=== PATIENT | male | born 2005 | race Caucasian/White ===

== ENCOUNTER 2024-04-19 21:18 | Emergency (ER) | payer OTHER, SELFPAY ==
[2024-04-19 21:19] VITALS: BP 147/84; PULSE 89; RESP 16; TEMP 36.8; O2SAT 99; BMI 34.0
--- NOTE | 2024-04-19 21:22 | RAD_ITS ---
STUDY: X-RAY - RIGHT HAND REASON FOR EXAM: Male, 18 years old. CRUSH INJURY TECHNIQUE: 3 view(s) of the hand. COMPARISON: None. FINDINGS: Normal radiocarpal articulation. Normal distal radioulnar joint. Normal visualized carpal bones. Normal carpal articulations Normal carpometacarpal articulation of the thumb. Normal second through fifth carpometacarpal joints. Normal metacarpi. Normal metacarpophalangeal joint of the thumb. Normal interphalangeal joint of the thumb. Normal proximal and distal phalanges of the thumb. Normal metacarpophalangeal joints of the second through fifth fingers. Normal proximal and distal interphalangeal joints of the second through fifth fingers. Probable 1 cm cyst of the second middle phalanx. Otherwise normal phalanges of the second through fifth fingers. There is dorsal soft tissue swelling. RAD/Hand Min 3 Views IMPRESSION: No acute fracture or dislocation. There is dorsal soft tissue swelling. There is a 1 cm probable cyst of the second middle phalanx. Electronically Signed: Elijah Alex MD at 21:58 EST ,
--- NOTE | 2024-04-19 21:26 | ED.RN ---
[facility]
--- NOTE | 2024-04-19 22:22 | EDS_ITS ---
HPI History of Present Illness Chief Complaint: Upper Extremity Injury Informant: patient Narrative Narrative: [id number] male presents work-related injury 1 hour prior to arrival. Move himself up on a scissor lift when they got pinched. He stopped it right away. Swelling to the right hand. No medications taken. No other injuries. No paresthesias. Prior similar symptoms: No PFSH PFSH Medical History Presence of implantable pulmonary artery pressure and heart rate monitoring system Home Medications ?Medication ?Instructions ?Recorded ?Last Taken ?Type NK 04/19/24 Unknown History Allergy/AdvReac Type Severity Reaction Status Date / Time No Known Allergies Allergy Verified 04/19/24 21:19 Family History no significant family his Social History Smoking Status: Never smoker ROS ROS ED Constitutional Constitutional ED: Denies chills, fever(s) or sweats Cardiovascular Cardiovascular: Denies chest pain Respiratory/Chest Respiratory/Chest: Denies cough Gastrointestinal Gastrointestinal: Denies abdominal pain, diarrhea, nausea or vomiting Musculoskeletal Musculoskeletal: Reports extremity pain Integumentary Denies wounds Neurologic Neurologic: Denies paresthesias or weakness EXAM Physical Exam Const Vital Signs: 04/19/24 21:19 Temperature 98.2 F Temperature Source Oral Pulse Rate 89 Respiratory Rate 16 Blood Pressure 147/84 H Blood Pressure Mean 105 Pulse Ox 99 Oxygen Delivery Method Room Air Positive well nourished and well developed General Appearance ED: well developed and NAD HEENT Reports moist mucous membranes normocephalic and atraumatic Eyes General Eye ED: Yes normal appearance of both eyes Neck full ROM Chest Wall Chest: Negative for tenderness Resp normal respiratory effort and normal air movement Effort and Inspection: symmetric chest movement; Negative for respiratory distress Cardio regular rate, regular rhythm and no murmurs Peripheral Pulses: pulses 2+ throughout GI normal to inspection, nondistended, normoactive bowel sounds and non-tender Palpation: Negative for guarding or rebound tenderness present Back/Spine no CVA tenderness and no thoracic nor lumbar tenderness Extremity Extremity Narrative: Right upper extremity no elbow or wrist tenderness. There is swelling to the dorsal third metacarpal skin is intact. No pain of the digits. Soft compartment. General Extremety ED: Yes tenderness; Negative for edema General Extremity: Negative for edema Neuro oriented x3 and no sensory deficits noted Sensorium / Orientation: awake and alert Skin no rashes or lesions noted and no wounds MDM MDM MDM Narrative Medical decision making narrative: Interventions / MDM: Differential diagnosis: Hand contusion Diagnosis considered but do not suspect: No compartment syndrome My EKG interpretation: N/A Imaging independently reviewed and interpreted by myself: Three-view x-ray right hand: No fracture or soft tissue swelling dorsal hand there is a bony cyst middle phalanx of the index finger. External documents reviewed: N/A Test considered but not ordered:N/A ED course: Patient declines any medications. X-ray performed through triage reviewed no fracture soft tissue swelling with bony cysts the middle phalanx of the index finger. He has no pain in this area. He cannot recall any previous x-rays. He declines any work restrictions Tc wrap due to swelling. Occupational health follow-up for his injury with his bony cyst will give follow-up with plastics hand as an outpatient. He will use Tylenol or Motrin as needed. All questions were answered. Re-evaluation: stable Disposition discussed with patient/family/significant other: Patient Case discussed with consulting clinician: N/A This note was generated with [employer] dictation software. It may contain incorrect words, spelling, and punctuation that were not noted in checking the note before signing. Radiography Diagnostic Testing: Clinical Impression(s) from Imaging Studies Hand X-Ray 04/19/24 21:22 IMPRESSION: No acute fracture or dislocation. There is dorsal soft tissue swelling. There is a 1 cm probable cyst of the second middle phalanx. Electronically Signed: Elijah Alex MD at 21:58 EST , Discharge Plan Triage Chief Complaint: Upper Extremity Injury ED Provider: David Arriaza Dx/Rx/DC Orders Clinical Impression: Contusion of hand, right, Work related injury, Bone cyst of hand Instructions: ED Bone Cyst, ED Hand Contusion Prescriptions: No Action NK Primary Care Provider: Care Physician,No Primary Referrals: Josh Dickey MD [Med Staff - Active Staff] - 1-2 Weeks Activity Restrictions/Additional Instructions: Follow-up with occupational health for your hand contusion. Incidental bony cyst seen middle phalanx of index finger. Follow-up with Dr. Dickey. Use Tylenol or Motrin as needed. Tc wrap for support. Print Language: Bengali Disposition Disposition: Home, Self Care Discharge Date/Time: 04/19/24 22:48
== END 2024-04-19 22:48 | disposition home or self-care (01) ==
LOC: ED 22:43
PROVIDERS: Emergency Provider Emergency Medicine; Visit Provider Emergency Medicine
DX: S60.221A Contusion of right hand, initial encounter (principal); M85.641 Other cyst of bone, right hand; X58.XXXA Exposure to other specified factors, initial encounter
CPT/HCPCS: 73130; 99282

== ENCOUNTER 2024-05-27 16:29 | Emergency (ER) | payer OTHER, SELFPAY ==
[2024-05-27 16:31] VITALS: BP 137/77; PULSE 88; RESP 18; TEMP 36.6; O2SAT 99; BMI 31.1
--- NOTE | 2024-05-27 17:05 | EX.ED.DYSGE1 ---
HPI History of Present Illness Chief Complaint: General Illness Informant: patient Onset/Context/Timing Onset: Days (3) Context: Gradual Onset Timing: Continuous Quality: Sharp Location: Low back Worsened by: Nothing Relieved by: Nothing Narrative Narrative: Patient presents with nasal congestion, nausea, vomiting, cough, headache, and back pain that has been getting worse over the past 3 days. Patient states he has had some nausea and vomiting. Patient denies any hematemesis or coffee-ground emesis. Patient admits to some urinary urgency and hesitancy but denies any dysuria or hematuria. Patient admits to pain in his low back. Patient describes it as sharp. Patient states nothing makes it worse and nothing makes it better. Patient also admits to some neck pain and headache. Patient states it is worse on the left side. Patient admits to a cough but denies any sputum production. Patient denies any fevers or chills. [facility] Medical History (Updated 05/27/24 @ 19:[address] Patricio Ramos DO) Depression Presence of implantable pulmonary artery pressure and heart rate monitoring system Home Medications ?Medication ?Instructions ?Recorded ?Last Taken ?Type aripiprazole 15 mg tablet 15 mg PO DAILY 05/27/24 05/27/24 History Allergy/AdvReac Type Severity Reaction Status Date / Time No Known Allergies Allergy Verified 05/27/24 16:49 Family History no significant family his Surgical History no surgical history no surgical history Social History Smoking Status: Never smoker ROS ROS ED Constitutional Constitutional ED: Denies chills or fever(s) Eyes Eyes: Denies blurry vision or change in vision ENT ENT ED: Reports rhinorrhea; Denies sore throat Cardiovascular Cardiovascular: Denies chest pain or palpitations Respiratory/Chest Respiratory/Chest: Reports cough; Denies dyspnea Gastrointestinal Gastrointestinal: Reports nausea and vomiting; Denies abdominal pain, diarrhea or melena Genitourinary Genitourinary ED: Denies dysuria or hematuria Musculoskeletal Musculoskeletal: Reports back pain; Denies neck pain Integumentary Reports rash; Denies abscess Neurologic Neurologic: Reports headache(s); Denies weakness Allergic/Immunologic Allergic/Immunologic ED: Denies mouth swelling or urticaria EXAM Physical Exam Const Vital Signs: 05/27/24 16:31 05/27/24 16:46 Temperature 98 F Temperature Source Oral Pulse Rate 88 Respiratory Rate 18 Respiratory Effort Normal Respiratory Pattern Normal Blood Pressure 137/77 H Blood Pressure Mean 97 Pulse Ox 99 Oxygen Delivery Method Room Air Positive well nourished and well developed General Appearance ED: well developed and NAD HEENT Reports moist mucous membranes Neck supple and no JVD Resp normal respiratory effort and clear to auscultation bilaterally Cardio regular rate and regular rhythm GI non-tender and non-distended Palpation: soft Back/Spine Back/Spine Narrative: There is mild tenderness of the lumbar paraspinal muscles. There is no midline tenderness. There is no bony crepitance or step-off noted. There is good range of motion. Extremity normal to inspection Neuro oriented x3, CN's II-XII intact bilaterally and no sensory deficits noted Sensorium / Orientation: alert Motor Exam: strength 5/5 throughout Psych mental status grossly normal Skin no wounds MDM MDM MDM Narrative Medical decision making narrative: Differential diagnosis includes urinary tract infection, viral upper respiratory infection, viral illness, gastroenteritis, and pneumonia. COVID-19, influenza, and RSV PCR will be obtained to assess for viral illness. Chest x-ray will be obtained to assess for pneumonia. Urinalysis will be obtained to assess for urinary tract infection and hematuria. Lab Data Attestation: I reviewed the patient's lab results. Lab results narrative: Urinalysis was reviewed. There is no evidence of urinary tract infection or hematuria. COVID-19 PCR was reviewed and was negative. Influenza PCR was reviewed and was negative for influenza A and influenza B. RSV PCR was reviewed and was negative. Labs: Laboratory Results - last 24 hr 05/27/24 17:24 Urine Color Yellow Urine Clarity Clear Urine pH 6.5 Ur Specific [place] 1.020 Urine Protein 15 H Urine Glucose (UA) Normal Urine Ketones Negative Urine Occult Blood Negative Urine Nitrite Negative Urine Bilirubin Negative Urine Urobilinogen 8 H Ur Leukocyte Esterase 25 H Urine RBC 0 SEEN Urine WBC 0-5 SEEN Ur Squamous Epith Cells 0-5 SEEN Amorphous Sediment 1+ Urine Bacteria 1+ Urine Mucus 0 SEEN Radiography Chest X-Ray - ED: 2 View, Read by ED Physician, Read by Radiologist and Normal Diagnostic Testing: Clinical Impression(s) from Imaging Studies Chest X-Ray 05/27/24 17:36 IMPRESSION: No acute radiographic abnormalities. Electronically Signed: Curt Samano MD at 18:18 EST , PA and lateral chest x-ray was obtained. There are 2 views. On my independent interpretation, lung cuellar are clear. There is normal cardiac silhouette. Bony thorax is normal. There is no acute process noted. Radiologist also interpreted the x-ray and agrees. Treatment and Re-Evaluation :: Patient was advised of his findings. Patient was instructed to drink plenty of fluids. Patient was instructed to follow-up with his primary care physician in 5 to 7 days. Patient understood and was agreeable with the plan. All questions were answered. Discharge Plan Triage Chief Complaint: General Illness ED Provider: Patricio Ramos Dx/Rx/DC Orders Clinical Impression: Viral illness, Nausea and vomiting Instructions: ED Viral Syndrome (Adult), ED Vomiting (Adult) Prescriptions: No Action aripiprazole 15 mg tablet 15 mg PO DAILY Stand Alone Forms: ED Work / School Excuse Primary Care Provider: Care Physician,No Primary Referrals: Jude Bernard MD [Med Staff - Centrifugal Spinner] - 5-7 Days Care Physician,No Primary [Primary Care Provider] - Print Language: Tajik Disposition Disposition: Home, Self Care
[2024-05-27 17:28] LABS: Mucous, Urine 0 SEEN /hpf (<or=2+); Red Blood Cells-Urine 0 SEEN /hpf (0-5)
[2024-05-27 17:34] LABS: Color, Urine Yellow (Yellow); Glucose, Dipstick Normal (Normal); Ketone-Dipstick Negative (Negative); Leukocyte Esterase-Dipstick 25 /ul (Negative); Nitrite-Dipstick Negative (Negative); Occult Blood-Urine Negative /ul (Negative); Protein-Dipstick 15 mg/dl (Negative); Urine Bilirubin Dipstick Negative (Negative); Urine Clarity Clear (Clear); Urine Urobilinogen 8 mg/dl (Normal); Urine pH 6.5 (5.0 - 8.0)
--- NOTE | 2024-05-27 17:36 | RAD_ITS ---
INDICATION: Cough EXAMINATION/TECHNIQUE: X-RAY - XR Chest 2 Views COMPARISON: None. FINDINGS: The lungs are clear. The cardiomediastinal silhouette is unremarkable. No pleural effusion or pneumothorax. No acute osseous abnormalities. RAD/Chest PA and Lateral IMPRESSION: No acute radiographic abnormalities. Electronically Signed: Curt Samano MD at 18:18 EST ,
[2024-05-27 17:45] LABS: Amorphous Sediment 1+; Bacteria 1+ /hpf (None Seen); Squamous Epithelial Cells - UA 0-5 SEEN /hpf (0-5); White Blood Cells 0-5 SEEN /hpf (0-5)
[2024-05-27 19:30] VITALS: BP 140/68; PULSE 72; RESP 16; TEMP 36.6; O2SAT 99
== END 2024-05-27 19:38 | disposition home or self-care (01) ==
PROVIDERS: Emergency Provider Emergency Medicine; Visit Provider Emergency Medicine
DX: B34.9 Viral infection, unspecified (principal); R11.2 Nausea with vomiting, unspecified; F32.A Depression, unspecified; Z79.899 Other long term (current) drug therapy
CPT/HCPCS: 71046; 81001; 87631; 99283

== ENCOUNTER 2024-06-16 07:35 | Emergency (ER) | payer OTHER, SELFPAY ==
[2024-06-16 07:35] VITALS: BP 147/128; PULSE 76; RESP 20; TEMP 36; O2SAT 100
[2024-06-16 07:36] VITALS: BMI 31.4
--- NOTE | 2024-06-16 07:42 | ED.RN ---
pt presents today after being seen here in the ED for the same injury from 04/19/24. pt works here for 16 days and then goes home out of state for 5-6 days. pt denies following up with PT/OT recommendations d/t working schedule.
--- NOTE | 2024-06-16 07:52 | EX.ED.UPPERE ---
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 Patient states that about 2 months ago he got his hand crushed between a lift and a pipe. He was seen in the emergency department had x-rays that showed a bone cyst of the index finger. However he has continued to have swelling of the third MCP joint on the dorsal surface. He states that it is better in the morning gets worse as he works and is now starting to catch limiting his ability to perform his job. He did not follow-up as he is in town typically for 16 days then goes home for a few days and comes back. [facility] Medical History Depression Presence of implantable pulmonary artery pressure and heart rate monitoring system Home Medications ?Medication ?Instructions ?Recorded ?Last Taken ?Type aripiprazole 15 mg tablet 15 mg PO DAILY 05/27/24 05/27/24 History Allergy/AdvReac Type Severity Reaction Status Date / Time No Known Allergies Allergy Verified 06/16/24 07:43 Social History Smoking Status: Never smoker ROS ROS ED Constitutional Constitutional ED: Denies chills or weight loss Eyes Eyes: Denies change in vision or diplopia ENT ENT ED: Denies ear pain, rhinorrhea or sore throat Cardiovascular Cardiovascular: Denies chest pain, orthopnea, palpitations or racing heartbeat Respiratory/Chest Respiratory/Chest: Denies cough, dyspnea or orthopnea Gastrointestinal Gastrointestinal: Denies abdominal pain, diarrhea, nausea or vomiting Genitourinary Genitourinary ED: Denies dysuria, hematuria or urinary frequency Musculoskeletal Musculoskeletal: Reports other Details: See history of present illness ; Denies arthralgias or myalgias Integumentary Denies abscess or rash Neurologic Neurologic: Denies headache(s) or weakness Psychiatric Psychiatric: Denies anxiety, depression, suicidal ideation or suicidal thoughts Endocrine Endocrinology: Denies polydipsia, polyphagia or polyuria Allergic/Immunologic Allergic/Immunologic ED: Denies mouth swelling, tongue swelling or urticaria EXAM Physical Exam Const Vital Signs: 06/16/24 07:35 Temperature 96.8 F L Temperature Source Temporal Pulse Rate 76 Respiratory Rate 20 H Blood Pressure 147/128 H Blood Pressure Mean 134 Pulse Ox 100 Oxygen Delivery Method Room Air Positive well nourished and well developed General Appearance ED: well developed HEENT Reports normocephalic, head/scalp atraumatic and moist mucous membranes Eyes PERRL and EOMs intact bilaterally Neck no lymphadenopathy, supple and no JVD Resp normal respiratory effort and clear to auscultation bilaterally Cardio regular rate, regular rhythm and no murmurs GI normal to inspection, nondistended, normoactive bowel sounds and non-tender Palpation: soft Back/Spine no CVA tenderness and normal ROM Extremity Extremity Narrative: There is localized swelling over the dorsal surface of the third MCP joint of the right hand. There is no evidence of cellulitis or infection. The swelling appears in line with his extensor tendon. Neurovascularly intact. General Extremety ED: Negative for edema General Extremity: Negative for edema Neuro oriented x3 and CN's II-XII intact bilaterally Sensorium / Orientation: alert Motor Exam: strength 5/5 throughout Psych mental status grossly normal Mood & Affect: Negative for depressed or tearful Skin no rashes or lesions noted and no wounds MDM MDM MDM Narrative Medical decision making narrative: Differential diagnosis would include fracture tendon injury ganglion cyst abscess ligamentous injury Bedside ultrasound confirms a localized fluid collection along the tendon sheath at the third MCP joint. There is a small calcification also noted that is not associated with the bone it appears in this fluid collection. This most likely a ganglion cyst. I reviewed his hand x-ray from 19 April 2024. Because of this new calcification a repeat hand x-ray was obtained. My independent interpretation of these films is bone cyst of the index finger. No acute fracture of the third MCP joint or calcification noted in the soft tissue. I am recommending that the patient follow-up with hand surgery either local or at home in [place]. History & Record Review Discussion w/independent historian: Patient Discharge Plan Triage Chief Complaint: Upper Extremity Injury ED Provider: Melvin Newman Dx/Rx/DC Orders Clinical Impression: Ganglion cyst of flexor tendon sheath of finger of right hand, Hand pain, right Instructions: Ganglion Cyst: Hand Prescriptions: No Action aripiprazole 15 mg tablet 15 mg PO DAILY Primary Care Provider: Care Physician,No Primary Referrals: Josh Dickey MD [Med Staff - Active Staff] - As soon as possible (for local hand surgery) Care Physician,No Primary [Primary Care Provider] - Print Language: Malay Disposition Disposition: Home, Self Care Discharge Date/Time: 06/16/24 08:28
--- NOTE | 2024-06-16 08:00 | RAD_ITS ---
PROCEDURE: HAND MIN 3 VIEWS REASON FOR EXAM: Pain TECHNIQUE: three views COMPARISON: None. FINDINGS: 10 mm cystic lesion 2nd middle phalanx possibly a simple bone cyst. No pathological fracture. Clinical and imaging surveillance is advised. Remaining osseous structures, joint spaces, soft tissues are grossly normal radiographically. No acute fracture. RAD/Hand Min 3 Views IMPRESSION: As above. Reading Location: [facility]
== END 2024-06-16 08:28 | disposition home or self-care (01) ==
PROVIDERS: Emergency Provider Emergency Medicine; Visit Provider Emergency Medicine
DX: M67.441 Ganglion, right hand (principal)
CPT/HCPCS: 73130; 99282